=== PATIENT | female | born 1995 | race Caucasian/White ===

== ENCOUNTER → 2017-06-10 | Outpatient (CLI) | payer BC | LOC: OD 13:47 | PROVIDERS: ATTEND Nurse Practitioner Primary Care | DX: O20.0 Threatened abortion (principal) | CPT/HCPCS: 36415; 84702 ==

== ENCOUNTER → 2017-06-13 | Outpatient (CLI) | payer BC | LOC: OD 09:23 | PROVIDERS: ATTEND Obstetrics & Gynecology | DX: Z34.90 Encounter for supervision of normal pregnancy, unspecified, unspecified trimester (principal) | CPT/HCPCS: 36415; 84702 ==

== ENCOUNTER → 2017-12-14 | Outpatient (CLI) | payer BC, MEDICAID ==
[~2017-12-14] MED LIST: BETAMET ACET/BETAMET NA INJ 6 MG/1 ML IM PRN; BETAMET ACET/BETAMET NA INJ 6 MG/1 ML ONE
== END ==
LOC: LC 08:07
PROVIDERS: ATTEND Obstetrics & Gynecology
DX: Z34.93 Encounter for supervision of normal pregnancy, unspecified, third trimester (principal)
CPT/HCPCS: 96372; J0702

== ENCOUNTER → 2017-12-15 | Outpatient (CLI) | payer BC, MEDICAID ==
[~2017-12-15] MED LIST changes: -BETAMET ACET/BETAMET NA INJ 6 MG/1 ML IM PRN
== END ==
LOC: LC 08:07
PROVIDERS: ATTEND Obstetrics & Gynecology Gynecology
DX: Z34.93 Encounter for supervision of normal pregnancy, unspecified, third trimester (principal)
CPT/HCPCS: 96372; J0702

== ENCOUNTER 2017-12-17 07:51 | Outpatient (CLI) | payer BC, MEDICAID ==
--- NOTE | 2017-12-17 08:26 | Non Stress Test Report ---
Non Stress Test Datetime Report Generated by CPN: 12/17/2017 08:25 DEMOGRAPHIC EGA NST: 32.3 INDICATION Indication for Study: Ordered by Provider Indication for Study (NST) Other: cardiac anomaly MONITORING Monitor Explained: Monitor Explained; Test Explained; Patient Verbalized Understanding Time on Monitor: 12/17/2017 07:59 Time off Monitor: 12/17/2017 08:22 NST Duration: 23 NST INTERVENTIONS NST Interventions: PO Hydration Physician Notified NST: Dr. Jackson BABY A: [id number] BABY A Movement : Present Contraction Frequency : x0 FHR Baseline : 125 Accelerations : 15X15 Decelerations : None Variability : Moderate 6-25bpm NST Review: Meets Criteria for Reactive NST NST Review and Verified By : BRANT JORDAN RN NST Results: Reactive NST REPORT Report Trigger: Send Report
== END 2017-12-17 08:25 | disposition home or self-care (01) ==
LOC: LC 07:51
PROVIDERS: ATTEND Obstetrics & Gynecology
PROC: 4A1HXCZ Monitoring of Products of Conception, Cardiac Rate, External Approach (ICD-10-PCS; principal; 2017-12-17)
DX: Q24.8 Other specified congenital malformations of heart (principal)
CPT/HCPCS: 59025

== ENCOUNTER 2017-12-24 09:16 | Outpatient (CLI) | payer BC, MEDICAID ==
--- NOTE | 2017-12-24 09:45 | Non Stress Test Report ---
Non Stress Test Datetime Report Generated by CPN: 12/24/2017 09:45 DEMOGRAPHIC EGA NST: 33.3 INDICATION Indication for Study: Intrauterine Growth Restriction; Ordered by Provider Indication for Study (NST) Other: 33 week repeat NST MONITORING Monitor Explained: Monitor Explained; Test Explained; Patient Verbalized Understanding Time on Monitor: 12/24/2017 09:25 NST INTERVENTIONS NST Interventions: PO Hydration; Reposition Patient Physician Notified NST: J. Pinto, CNM BABY A: [id number] BABY A Movement : Present Contraction Frequency : x2 FHR Baseline : 135 Decelerations : None NST Review and Verified By : C. palak, RN NST REPORT Report Trigger: Send Report
== END 2017-12-24 09:49 | disposition home or self-care (01) ==
LOC: LC 09:16
PROVIDERS: ATTEND Obstetrics & Gynecology
PROC: 4A1HXCZ Monitoring of Products of Conception, Cardiac Rate, External Approach (ICD-10-PCS; principal; 2017-12-24)
DX: O36.5930 Maternal care for other known or suspected poor fetal growth, third trimester, not applicable or unspecified (principal); Z3A.33 33 weeks gestation of pregnancy
CPT/HCPCS: 59025